=== PATIENT | female | born 1960 | race Hispanic/Latino ===

== ENCOUNTER 2021-03-16 12:42 | Outpatient (CLI) | payer OTHER ==
--- NOTE | 2021-03-16 14:08 | XRay Report ---
Cervical spine 3 views INDICATION / CLINICAL INFORMATION: NECK PAIN. COMPARISON: None available. FINDINGS: The fourth and fifth cervical vertebrae are fused, and there is advanced degenerative change from C3 to C7. No acute fracture or subluxation. Signer Name: Marques Luis MD Signed: 03/16/2021 2:04 PM Workstation Name: [id number]
== END 2021-03-16 12:43 | disposition home or self-care (01) ==
LOC: XRAY 12:42
PROVIDERS: ATTEND Internal Medicine
DX: M47.812 Spondylosis without myelopathy or radiculopathy, cervical region (principal)
CPT/HCPCS: 72040